=== PATIENT | male | born 2000 | race Two or more races ===

== ENCOUNTER 2021-04-18 20:50 | Emergency (ER) | payer MEDICAID, OTHER ==
[~2021-04-18] VITALS: Ht 175.3 cm; Wt 74.8 kg
[2021-04-18 20:55] VITALS: BP 124/68
== END 2021-04-18 23:30 | disposition home or self-care (01) ==
LOC: ER 20:50
DX: J03.80 Acute tonsillitis due to other specified organisms (principal); B96.89 Other specified bacterial agents as the cause of diseases classified elsewhere; K12.0 Recurrent oral aphthae